=== PATIENT | male | born 1960 | race Caucasian/White ===

== ENCOUNTER 2016-09-28 12:23 | Emergency (ER) | payer SELFPAY ==
[~2016-09-28] VITALS: Ht 185.4 cm; Wt 87.0 kg
[~2016-09-28 12:23] MED LIST: BACT800T5 PO; CLIN150 PO; DILA8TAB4 PO; LISI-360 PO; METH10TA PO; XANA1TAB6 PO
[2016-09-28 12:37] VITALS: BP 152/109; PULSE 83; RESP 16; TEMP 98.3; O2SAT 100
[2016-09-28] MEDS ORDERED: HYDR8TAB PO (12:51)
[2016-09-28] MEDS ORDERED: METH10TA PO (12:51)
--- NOTE | 2016-09-28 13:13 | PD ---
HPI Chief Complaint: Injury Time Seen by Provider: 13:01 Travel History International Travel<30 days: No Contact w/Intl Traveler<30days: No Traveled to known affect area: No History of Present Illness HPI 55-year-old male presents to the emergency room for evaluation of left knee pain and swelling for the past week. Patient states one week ago he tripped and fell forward landing directly on his left knee. He denies any other injuries. Pain is localized to the posterior aspect of the knee. He has been unable to ambulate since then and has had to stay in bed. Patient states when he moves his knee he feels cracking on the inside. Pain is worsened with ambulation and any range of motion. He has been elevating it since the fall but not applying ice. He has been taking ibuprofen in addition to his pain medications. He takes Hydromorphone and methadone for previous ankle surgery in 2010. Denies history of left knee surgeries. Denies paresthesias. He denies being on blood thinners. PFSH Past Medical History Blood Disorders: No Anxiety: Yes Depression: Yes Cancer: No Cardiovascular Problems: Yes (HYPERTENSION) High Cholesterol: Yes Chemotherapy: No Chest Pain: No COPD: No Diabetes: No Diminished Hearing: No Endocrine: No Glaucoma: No Hiatal Hernia: No Musculoskeletal: Yes (CHRONIC PAIN) Psychiatric: Yes Respiratory: Yes Immunizations Current: No Myocardial Infarction: Yes (states he ws Dx with an NC at "[facility]") Radiation Therapy: No Renal Failure: No Seizures: No Sickle Cell Disease: No Sleep Apnea: Yes Thyroid Disease: No Influenza Vaccination: No PNEUMOCCOCAL Vaccine (Year): 2 ?: Not Past Surgical History Abdominal Surgery: Yes (MID ABD HERNIA REPAIR.) AICD: No Arteriovenous Shunt: No Insulin Pump: No Joint Replacement: No Pacemaker: No Other Surgery: Yes (RIGHT ANKLE) Social History Alcohol Use: No Tobacco Use: Yes (1ppd) Substance Use: Yes Allergies-Medications (Allergen,Severity, Reaction): Coded Allergies: No Known Allergies (Verified , 09/28/16) Reported Meds & Prescriptions Reported Meds & Active Scripts Active Reported Methadone (Methadone HCl) 10 Mg Tab 10 Mg PO TID Hydromorphone (Hydromorphone HCl) 8 Mg Tab 8 Mg PO TID PRN Review of Systems Except as stated in HPI: all other systems reviewed are Neg Physical Exam Narrative GENERAL: Well-nourished, well-developed male in no acute distress. Afebrile. SKIN: Focused skin assessment warm/dry. No erythema or ecchymosis. HEAD: Normocephalic. EYES: No scleral icterus. No injection or drainage. NECK: Supple, trachea midline. No JVD or lymphadenopathy. CARDIOVASCULAR: Regular rate and rhythm without murmurs, gallops, or rubs. RESPIRATORY: Breath sounds equal bilaterally. No accessory muscle use. EXTREMITY: Left knee extremely tender to palpation. Full extension but limited flexion secondary to pain and swelling. There is extreme edema and obvious effusion of the left knee. 2+ dorsalis pedis pulses. No obvious deformity. No pain with valgus or varus stress. No calf tenderness. Data Data Last Documented VS Vital Signs Date Time Temp Pulse Resp B/P Pulse Ox O2 Delivery O2 Flow Rate FiO2 09/28/16 12:37 98.3 83 16 152/109 100 Orders Knee, Complete (4vws) (09/28/16 ) Splint Or Brace Apply/Monitor (09/28/16 14:21) Crutches (09/28/16 14:28) MDM Medical Decision Making Medical Screen Exam Complete: Yes Emergency Medical Condition: Yes Medical Record Reviewed: Yes Differential Diagnosis Effusion versus fracture versus sprain versus contusion Narrative Course 55-year-old male presents to the emergency room for evaluation of left knee pain and swelling that has been present for one week. Patient tripped on curb and fell forward and landing directly on his left knee one week ago; denies any other injuries. Physical exam reveals extreme edema, obvious effusion, and tenderness to palpation of the left knee. Limited range of motion secondary to pain and swelling. No obvious deformity. Left lower extremity is neurovascularly intact with 2+ dorsalis pedis pulse. X-ray shows no evidence of acute fracture but suprapatellar joint effusion and moderate osteoarthritis with osteophyte formation. He was given copy of report. Patient placed in knee immobilizer and given crutches. He is ambulatory with crutches on discharge. He was told to follow up with a primary care physician for outpatient MRI to evaluate for sprain. He was told to return to the emergency room for worsening symptoms. He understands and agrees to this plan. Diagnosis Primary Impression: Effusion, left knee Referrals: Primary Care Physician Patient Instructions: General Instructions, Knee Sprain (ED) Additional Instructions: Rest and drink plenty of fluids. Use knee immobilizer until follow-up. Take ibuprofen with food as directed, as needed for pain and swelling. Elevate and apply ice to the affected area for 20 minutes at a time, as needed for pain and swelling. Follow-up with a primary care physician for outpatient MRI. Return to the emergency room for worsening symptoms. Med/Other Pt SpecificInfo: Prescription(s) given Disposition: 01 DISCHARGE HOME Condition: Stable Rama Kebede September 28, 2016 13:13
--- NOTE | 2016-09-28 14:06 | RADHPO ---
EXAM DATE/TIME: 09/28/2016 13:05 [facility] COMPARISON: No previous studies available for comparison. INDICATIONS : Left posterior knee pain & swelling post fall. MEDICAL HISTORY : Hypertension. Myocardial infarction. Hypercholesterolemia. Sleep apnea. SURGICAL HISTORY : Hernia repair. Right ankle. ENCOUNTER: Initial ACUITY: 1 week PAIN SCORE: 10/10 LOCATION: Left posterior knee FINDINGS: There is moderate osteoarthritis with joint space narrowing and marginal osteophyte formation in the lateral tibiofemoral compartment. There is no evidence of acute fracture. Bony mineralization is nor mal. A suprapatellar joint effusion is present. There is spur formation off the superior aspect of th e patella. CONCLUSION: 1. There is no evidence of acute fracture. Joint effusion Fabio Carrera MD on September 28, 2016 at 14:02 Board Certified Radiologist. This report was verified electronically.
== END 2016-09-28 14:59 | disposition home or self-care (01) ==
LOC: PHEFT 12:23
DX: M25.462 Effusion, left knee (principal); I10 Essential (primary) hypertension; F17.210 Nicotine dependence, cigarettes, uncomplicated
CPT/HCPCS: 73564; 99283; E0113; L1830

== ENCOUNTER 2016-10-31 18:37 | Emergency (ER) | payer SELFPAY ==
[~2016-10-31] VITALS: Ht 177.8 cm; Wt 80.0 kg
[~2016-10-31 18:37] MED LIST changes: -BACT800T5 PO; -CLIN150 PO; -DILA8TAB4 PO; +HYDR8TAB PO; -LISI-360 PO; -XANA1TAB6 PO
[2016-10-31 18:38] VITALS: BP 133/78; PULSE 84; RESP 16; TEMP 97.8; O2SAT 98
--- NOTE | 2016-10-31 19:27 | PD ---
HPI Chief Complaint: Injury Time Seen by Provider: 19:22 Travel History International Travel<30 days: No Contact w/Intl Traveler<30days: No Traveled to known affect area: No History of Present Illness HPI Patient is a 55-year-old male presents to emergency department for evaluation of left knee and lower leg pain and swelling. Patient fell approximately 5 weeks ago onto his left knee, he was seen and evaluated shortly thereafter and diagnosed with a knee effusion, he was given crutches and a knee immobilizer. Patient reports that he is having increased pain and swelling for the last several days. He reports pain in his mid calf that is an 8 out of 10. He describes his pain as aching and throbbing. He denies any history of a blood clot but he has been sedentary and is a smoker. Patient is not on any blood thinners. He has not followed up with primary care as previously advised. PFSH Past Medical History Anxiety: Yes Depression: Yes High Cholesterol: Yes Hypertension: Yes Musculoskeletal: Yes (CHRONIC PAIN) Respiratory: Yes Myocardial Infarction: Yes Sleep Apnea: Yes PNEUMOCCOCAL Vaccine (Year): 2 Past Surgical History Abdominal Surgery: Yes (MID ABD HERNIA REPAIR.) Other Surgery: Yes (RIGHT ANKLE) Social History Alcohol Use: No Tobacco Use: Yes (1ppd) Substance Use: Yes (IV Dilaudid) Allergies-Medications (Allergen,Severity, Reaction): Coded Allergies: No Known Allergies (Verified , 10/31/16) Reported Meds & Prescriptions Reported Meds & Active Scripts Active Reported Methadone (Methadone HCl) 10 Mg Tab 10 Mg PO TID Hydromorphone (Hydromorphone HCl) 8 Mg Tab 8 Mg PO TID PRN Review of Systems Except as stated in HPI: all other systems reviewed are Neg Musculoskeletal: Positive: Myalgias, Arthralgias, Limited ROM, Edema, Pain Skin: Positive Change in Pigmentation Physical Exam Narrative GENERAL: Well-nourished, well-developed patient. SKIN: Focused skin assessment warm/dry. HEAD: Normocephalic. EYES: No scleral icterus. No injection or drainage. NECK: Supple, trachea midline. No JVD or lymphadenopathy. CARDIOVASCULAR: Regular rate and rhythm without murmurs, gallops, or rubs. RESPIRATORY: Breath sounds equal bilaterally. No accessory muscle use. GASTROINTESTINAL: Abdomen soft, non-tender, nondistended. MUSCULOSKELETAL: No cyanosis, significant edema to the left lower extremity, 2+ . Erythema and edema to the left foot. 2+ Positive dorsalis pedis pulse. Positive Sumi sign on the left. BACK: Nontender without obvious deformity. No CVA tenderness. Data Data Last Documented VS Vital Signs Date Time Temp Pulse Resp B/P Pulse Ox O2 Delivery O2 Flow Rate FiO2 10/31/16 19:12 84 16 98 Room Air 10/31/16 18:38 97.8 133/78 Orders Us Leg Venous Doppler (10/31/16 ) Complete Blood Count With Diff (10/31/16 19:21) Comprehensive Metabolic Panel (10/31/16 19:21) Act Partial Throm Time (Ptt) (10/31/16 19:21) Prothrombin Time / Inr (Pt) (10/31/16 19:21) Cta Runoff W Iv Contrast W 3d (10/31/16 ) Clindamycin Inj (Cleocin Inj) (10/31/16 21:45) Iohexol 350 Inj (Omnipaque 350 Inj) (10/31/16 23:09) Ketorolac Inj (Toradol Inj) (11/01/16 00:15) Labs Laboratory Tests Test 10/31/16 19:35 White Blood Count 8.0 TH/MM3 Red Blood Count 3.71 MIL/MM3 Hemoglobin 10.3 GM/DL Hematocrit 30.3 % Mean Corpuscular Volume 81.7 FL Mean Corpuscular Hemoglobin 27.7 PG Mean Corpuscular Hemoglobin 33.9 % Concent Red Cell Distribution Width 14.4 % Platelet Count 329 TH/MM3 Mean Platelet Volume 7.9 FL Neutrophils (%) (Auto) 80.2 % Lymphocytes (%) (Auto) 8.1 % Monocytes (%) (Auto) 9.9 % Eosinophils (%) (Auto) 1.1 % Basophils (%) (Auto) 0.7 % Neutrophils # (Auto) 6.5 TH/MM3 Lymphocytes # (Auto) 0.7 TH/MM3 Monocytes # (Auto) 0.8 TH/MM3 Eosinophils # (Auto) 0.1 TH/MM3 Basophils # (Auto) 0.1 TH/MM3 CBC Comment DIFF FINAL Differential Comment Prothrombin Time 11.8 SEC Prothromb Time International 1.1 RATIO Ratio Activated Partial 30.6 SEC Thromboplast Time Sodium Level 134 MEQ/L Potassium Level 3.6 MEQ/L Chloride Level 100 MEQ/L Carbon Dioxide Level 23.8 MEQ/L Anion Gap 10 MEQ/L Blood Urea Nitrogen 16 MG/DL Creatinine 0.77 MG/DL Estimat Glomerular Filtration 105 ML/MIN Rate Random Glucose 103 MG/DL Calcium Level 8.3 MG/DL Total Bilirubin 0.3 MG/DL Aspartate Amino Transf 29 U/L (AST/SGOT) Alanine Aminotransferase 26 U/L (ALT/SGPT) Alkaline Phosphatase 67 U/L Total Protein 7.3 GM/DL Albumin 2.6 GM/DL MDM Medical Decision Making Medical Screen Exam Complete: Yes Emergency Medical Condition: Yes Medical Record Reviewed: Yes Interpretation(s) Last Impressions Lower Extremity Ultrasound 10/31/16 0000 Signed Impressions: Service Date/Time: Monday, October 31, 2016 20:13 - CONCLUSION: 1. No DVT is identified in the left lower extremity. 2. Complex structures in the popliteal fossa and medial calf may represent a complex Gregory's cyst and fluid tracking inferiorly from the Gregory's cyst into the calf. Yvon Alcantara MD Aorta w/Runoff CTA 10/31/16 0000 Signed Impressions: Service Date/Time: Monday, October 31, 2016 22:45 - CONCLUSION: 1. No thrombosis , stenosis or other acute arterial abnormality demonstrated. Minimal patchy atherosclerotic plaque seen in the aorta. 2. Bilateral knee osteoarthritis, left worse than right. On the left, there is a 14 mm osteochondral body anterior to the notch and an effusion that is leaking into the popliteus muscle belly and a popliteal cyst. The left medial gastrocnemius fluid is less specific but probably leaking joint/Gregory's cyst fluid as well. 3. A benign-appearing cyst is incidentally noted of the left kidney. Yvon Shultz MD Vital Signs Date Time Temp Pulse Resp B/P Pulse Ox O2 Delivery O2 Flow Rate FiO2 10/31/16 19:12 84 16 98 Room Air 10/31/16 18:38 97.8 84 16 133/78 98 Differential Diagnosis DVT versus cellulitis versus dependent edema versus effusion versus other Narrative Course Patient is a 55-year-old male presenting for evaluation of left lower leg pain and swelling that initially started out as a left knee effusion approximately 5 weeks ago. Initial x-rays done on September 28, 2016 were negative for acute fracture but did show osteoarthritis as well a knee effusion. Patient has been using a knee immobilizer as well as crutches and continues to be unable to bear weight. Patient is currently neurovascularly intact however he does have significant edema and erythema to the left lower extremity. Ultrasound ordered to rule out DVT. Ultrasound was negative for DVT, does show fluid collections, possible Gregory cyst. I discussed with Dr. Bravo who evaluated patient. At this time a CTA of the lower extremities with runoff is ordered to rule out any neurovascular compromise. Patient be given dose of IV clindamycin now. While Dr. Bravo and I were evaluating patient together there were obvious track mcgrath to patient 's left posterior forearm that were not noticed before. Patient does admit to injecting Dilaudid. CTA with runoff of bilateral lower extremity shows No thrombosis, stenosis or other acute arterial abnormality demonstrated. Minimal patchy atherosclerotic plaque seen in the aorta. 2. Bilateral knee osteoarthritis, left worse than right. On the left, there is a 14 mm osteochondral body anterior to the notch and an effusion that is leaking into the popliteus muscle belly and a popliteal cyst. The left medial gastrocnemius fluid is less specific but probably leaking joint/Gregory's cyst fluid as well. 3. A benign-appearing cyst is incidentally noted of the left kidney. Per the radiologist's report. Patient was advised to follow-up with orthopedic surgeon as he was advised well over a month ago, he is encouraged to alternate heat and ice to the area, continue range of motion exercises, elevate extremity. He can continue to take his home pain medication. He is encouraged to return to emergency department for any new or worsening symptoms. Patient verbalized understanding of instructions. Patient is stable for discharge. Patient was strongly advised to avoid injecting his Dilaudid into his veins and take it orally as prescribed. 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 Do not inject into veins Return to emergency department for any new or worsening symptoms Med/Other Pt SpecificInfo: Prescription(s) given Scripts Clindamycin 150 Mg [id number] Mg PO Q8HR 7 Days Ref 0 Prov:Elva Bull 11/01/16 Disposition: 01 DISCHARGE HOME Condition: Stable Elva Bull Oct 31, 2016 19:27
[2016-10-31 19:57] LABS: AUTOMATED NEUTROPHIL # 6.5 TH/MM3 (1.8-7.7); BASOPHIL # 0.1 TH/MM3 (0-0.2); BASOPHIL % 0.7 % (0.0-2.0); EOSINOPHIL # 0.1 TH/MM3 (0-0.4); EOSINOPHIL % 1.1 % (0.0-4.0); HEMATOCRIT 30.3 % (39.0-51.0); HEMO FLAGS DIFF FINAL; LYMPH % 8.1 % (9.0-44.0); LYMPHOCYTE # 0.7 TH/MM3 (1.0-4.8); MEAN CELL VOLUME 81.7 FL (80.0-100.0); MEAN CORPUSCULAR HEMOGLOBIN 27.7 PG (27.0-34.0); MEAN CORPUSCULAR HGB CONC 33.9 % (32.0-36.0); MONO % 9.9 % (0.0-8.0); NEUT % 80.2 % (16.0-70.0); PLATELET COUNT 329 TH/MM3 (150-450); RED BLOOD COUNT 3.71 MIL/MM3 (4.50-5.90); RED CELL DISTRIBUTION WIDTH 14.4 % (11.6-17.2)
[2016-10-31 20:10] LABS: ANION GAP 10 MEQ/L (5-15); AST (GOT) 29 U/L (15-37); BICARBONATE 23.8 MEQ/L (21.0-32.0); BLOOD UREA NITROGEN 16 MG/DL (7-18); CHLORIDE 100 MEQ/L (98-107); GLOMERULAR FILTRATION RATE 105 ML/MIN (>89); POTASSIUM 3.6 MEQ/L (3.5-5.1); SODIUM (NA) 134 MEQ/L (136-145)
[2016-10-31 20:11] LABS: ALT (GPT) 26 U/L (12-78)
[2016-10-31 20:13] LABS: ALKALINE PHOSPHATASE 67 U/L (45-117); TOTAL BILIRUBIN ADULT 0.3 MG/DL (0.2-1.0)
[2016-10-31 20:14] LABS: APTT (PATIENT) 30.6 SEC (24.3-30.1); INTERNATIONAL NORMALIZED RATIO 1.1 RATIO; PROTHROMBIN TIME - PATIENT 11.8 SEC (9.8-11.6)
--- NOTE | 2016-10-31 21:44 | RADRPT ---
EXAM DATE/TIME: 10/31/2016 20:13 [facility] COMPARISON: No previous studies available for comparison. INDICATIONS : Left leg swelling and pain. MEDICAL HISTORY : Hypercholesterolemia. Hypertension. Myocardial infarction. Sleep apea. Depression. Anxiety. SURGICAL HISTORY : Right ankle surgery. Hernia repair. ENCOUNTER: Initial ACUITY: 1 week PAIN SCORE: 9/10 LOCATION: Left leg. TECHNIQUE: Venous ultrasound of the leg was performed from the inguinal ligament to the proximal calf. Real-lonnie e, color Doppler and spectral tracing, compression and augmentation techniques were used. FINDINGS: There is normal compressibility of the deep venous system from the inguinal region to the proximal ca lf. No echogenic clot is seen in the lumen of the common femoral, femoral, popliteal, and posterior tibial veins. There is a normal response of the venous system to proximal and distal augmentation an d respiration. There is a hypoechoic avascular structure in the popliteal fossa measuring 5.0 x 1.6 x 3.3 cm. Partia lly anechoic and hypoechoic structure is also present on the left medial calf region and measures 11. 1 x 0.8 x 6.8 cm. CONCLUSION: 1. No DVT is identified in the left lower extremity. 2. Complex structures in the popliteal fossa and medial calf may represent a complex Gregory's cyst and fluid tracking inferiorly from the Gregory's cyst into the calf. Yvon Alcantara MD on October 31, 2016 at 21:01 Board Certified Radiologist. This report was verified electronically.
[2016-10-31] MEDS ORDERED: CLINDAMYCIN INJ 900 MG in SODIUM CHLORIDE 0.9% INJ 100 ML IV ONE (21:45)
[2016-10-31] MEDS ORDERED: IOHEXOL 350 MG/ML 10 ML VIAL (for RAD DIAG) IV ONE (23:09)
[2016-11-01] MEDS ORDERED: KETOROLAC TROMETHAMINE 30 MG/ML (IVP) VIAL IV PUSH ONE (00:15)
--- NOTE | 2016-11-01 00:33 | RADRPT ---
EXAM DATE/TIME: 10/31/2016 22:45 [facility] COMPARISON: US LEG LEFT VENOUS DOPPLER, October 31, 2016, 20:13. KNEE LEFT COMPLETE (4VWS), September 28, 2016, 13:05. INDICATIONS : Left leg swelling. Left knee injury 5 weeks ago. IV CONTRAST: 100 cc Omnipaque 350 (iohexol) IV RADIATION DOSE: 10.51 CTDIvol (mGy) MEDICAL HISTORY : Hypertension. IV drug user SURGICAL HISTORY : Hernia repair ENCOUNTER: Initial ACUITY: 1 month PAIN SCALE: 10/10 LOCATION: Left leg TECHNIQUE: Volumetric scanning was performed using a multi-row detector CT scanner. The data was post processed with a variety of visualization algorithms including full volume maximum intensity projection, multi -planar sliding thin slab reformation, curved planar reformation, and surface rendering techniques. Using automated exposure control and adjustment of the mA and/or kV according to patient size, radiat ion dose was kept as low as reasonably achievable to obtain optimal diagnostic quality images. FINDINGS: ABDOMINAL AORTA: The lumen is smooth without significant narrowing or aneurysmal dilation. Mild patchy atheroscleroti c plaque seen of the abdominal aorta. The proximal celiac and superior mesenteric arteries are patent and normal in diameter. There are solitary renal arteries bilaterally without gross abnormality. BIFURCATION: Normal. RIGHT PELVIS: The right common iliac, internal iliac, and external iliac vessels are patent without luminal irregul arity. LEFT PELVIS: The left common iliac, internal iliac, and external iliac vessels are patent and without luminal irre gularity. RIGHT THIGH: The superficial femoral and profunda vessels are patent without luminal irregularity. LEFT THIGH: The superficial femoral and profunda vessels are patent without luminal irregularity. RIGHT KNEE: The distal femoral and popliteal arteries are patent without luminal irregularity. There is moderate tricompartment osteoarthritis. LEFT KNEE: The distal femoral and popliteal arteries are patent without luminal irregularity. There is tricompar tment osteoarthritis, moderate at the medial compartment and severe at the lateral and patellofemoral compartments. A 14 mm osteochondral body is seen anterior to the notch. A large left knee joint effu eddie is present, some decompressing into the popliteus muscle belly and some also decompressing into the semimembranosus/gastrocnemius bursa. Elongated fluid collection also seen within the medial gastr ocnemius muscle. RIGHT LEG: The trifurcation is intact. LEFT LEG: The trifurcation is intact. 3.2 cm cyst incidentally seen of the left kidney. CONCLUSION: 1. No thrombosis, stenosis or other acute arterial abnormality demonstrated. Minimal patchy atheroscl erotic plaque seen in the aorta. 2. Bilateral knee osteoarthritis, left worse than right. On the left, there is a 14 mm osteochondral body anterior to the notch and an effusion that is leaking into the popliteus muscle belly and a popl iteal cyst. The left medial gastrocnemius fluid is less specific but probably leaking joint/Gregory's c yst fluid as well. 3. A benign-appearing cyst is incidentally noted of the left kidney. Yvon Shultz MD on November 01, 2016 at 0:23 Board Certified Radiologist. This report was verified electronically.
[2016-11-01] MEDS ORDERED: CLIN1CAP5 PO (01:11)
== END 2016-11-01 01:44 | disposition home or self-care (01) ==
LOC: NEPD 18:37
DX: M71.22 Synovial cyst of popliteal space [Baker], left knee (principal); L03.116 Cellulitis of left lower limb; M25.462 Effusion, left knee; I10 Essential (primary) hypertension; F41.8 Other specified anxiety disorders; I21.3 ST elevation (STEMI) myocardial infarction of unspecified site; F17.210 Nicotine dependence, cigarettes, uncomplicated; F19.10 Other psychoactive substance abuse, uncomplicated; M17.12 Unilateral primary osteoarthritis, left knee
CPT/HCPCS: 75635; 80053; 85025; 85610; 85730; 93971; 96365; 96375; 99285; J1885; Q9967

== ENCOUNTER 2017-10-11 23:46 | Emergency (ER) | payer MEDICAID, OTHER ==
[~2017-10-11] VITALS: Ht 185.4 cm; Wt 86.0 kg
[~2017-10-11 23:46] MED LIST changes: +CLON.1 PO; +ENAL5TAB PO; +FLUT50SP NASAL; +HYDR25TA5 PO; -HYDR8TAB PO; +LORATADINE PO; -METH10TA PO; +PSEUDOEPHEDRINE PO; +SERO25TA PO
[2017-10-11 23:49] VITALS: BP 197/105; PULSE 92; RESP 20; TEMP 97.4; O2SAT 99
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
[2017-10-12] MEDS ORDERED: ASPIRIN 81 MG CHEW TAB PO ONE
[2017-10-12] MEDS ORDERED: SODIUM CHLORIDE 0.9% FLUSH 10 ML FLUSH IVF PRN
[2017-10-12 00:01] VITALS: BP 197/105; PULSE 96; O2SAT 99
[2017-10-12 00:19] LABS: AUTOMATED NEUTROPHIL # 8.1 TH/MM3 (1.8-7.7); BASOPHIL # 0.1 TH/MM3 (0-0.2); BASOPHIL % 0.6 % (0.0-2.0); EOSINOPHIL # 0.1 TH/MM3 (0-0.4); EOSINOPHIL % 0.7 % (0.0-4.0); HEMATOCRIT 40.2 % (39.0-51.0); HEMOGLOBIN 13.6 GM/DL (13.0-17.0); LYMPH % 9.4 % (9.0-44.0); LYMPHOCYTE # 0.9 TH/MM3 (1.0-4.8); MEAN CELL VOLUME 87.7 FL (80.0-100.0); MEAN CORPUSCULAR HEMOGLOBIN 29.6 PG (27.0-34.0); MEAN CORPUSCULAR HGB CONC 33.7 % (32.0-36.0); MEAN PLATELET VOLUME 8.4 FL (7.0-11.0); MONO % 5.2 % (0.0-8.0); MONOCYTE # 0.5 TH/MM3 (0-0.9); NEUT % 84.1 % (16.0-70.0); PLATELET COUNT 244 TH/MM3 (150-450); RED BLOOD COUNT 4.59 MIL/MM3 (4.50-5.90); RED CELL DISTRIBUTION WIDTH 14.7 % (11.6-17.2); WHITE BLOOD COUNT 9.6 TH/MM3 (4.0-11.0)
[2017-10-12 00:29] LABS: INTERNATIONAL NORMALIZED RATIO 1.1 RATIO; PROTHROMBIN TIME - PATIENT 11.5 SEC (9.8-11.6)
--- NOTE | 2017-10-12 00:29 | RADRPT ---
EXAM DATE: 10/12/2017 12:17 AM EDT AGE/SEX: 56 years / Male INDICATIONS: Short of breath. CLINICAL DATA: This is the patient's initial encounter. Patient reports that signs and symptoms have been present for 1 day and indicates a pain score of 0/10. MEDICAL/SURGICAL HISTORY: . Hypertension. Arthritis. IV drug user. None. COMPARISON: [facility] [place], CHEST PA & LAT, 09/10/2010. . FINDINGS: The lungs are clear without infiltrate, nodule, or mass. There is no appreciable pleural effusion for technique. Heart and mediastinum are unremarkable. CONCLUSION: No acute cardiopulmonary disease. Electronically signed by: Karuna Alcantara MD 10/12/2017 12:27 AM EDT
[2017-10-12 00:50] LABS: ALBUMIN 3.3 GM/DL (3.4-5.0); ALT (GPT) 20 U/L (12-78); AST (GOT) 21 U/L (15-37); BICARBONATE 21.3 MEQ/L (21.0-32.0); BLOOD UREA NITROGEN 12 MG/DL (7-18); CALCIUM 8.2 MG/DL (8.5-10.1); CHLORIDE 104 MEQ/L (98-107); CREATININE 0.93 MG/DL (0.60-1.30); GLOMERULAR FILTRATION RATE 84 ML/MIN (>89); GLUCOSE,RANDOM 117 MG/DL (74-106); SODIUM (NA) 139 MEQ/L (136-145)
[2017-10-12 00:54] LABS: ALKALINE PHOSPHATASE 122 U/L (45-117); TOTAL BILIRUBIN ADULT 0.3 MG/DL (0.2-1.0); TOTAL PROTEIN 7.6 GM/DL (6.4-8.2); TROPONIN I LESS THAN 0.02 NG/ML (0.02-0.05)
[2017-10-12 01:07] LABS: ACETAMINOPHEN LESS THAN 2.0 MCG/ML (10.0-30.0)
[2017-10-12] MEDS ORDERED: cloNIDine HCL 0.1 MG TAB PO ONE ×2 (01:15)
[2017-10-12 01:35] VITALS: BP 180/90; PULSE 76
[2017-10-12 07:24] VITALS: PULSE 67; RESP 15
[2017-10-12 09:38] VITALS: BP 180/97; PULSE 83; RESP 16; O2SAT 97
--- NOTE | 2017-10-12 11:00 | PD ---
Data Data Last Documented VS Vital Signs Date Time Temp Pulse Resp B/P (MAP) Pulse Ox O2 Delivery O2 Flow Rate FiO2 10/12/17 09:38 83 16 180/97 (124) 97 Room Air 10/11/17 23:49 97.4 Orders Orders Electrocardiogram (10/11/17 23:56) Ckmb (Isoenzyme) Profile (10/11/17 23:56) Complete Blood Count With Diff (10/11/17 23:56) Comprehensive Metabolic Panel (10/11/17 23:56) Prothrombin Time / Inr (Pt) (10/11/17 23:56) Act Partial Throm Time (Ptt) (10/11/17 23:56) Troponin I (10/11/17 23:56) Chest, Single Ap (10/11/17 23:56) Ecg Monitoring (10/11/17 23:56) Iv Access Insert/Monitor (10/11/17 23:56) Oximetry (10/11/17 23:56) Aspirin Chew (Aspirin Chew) (10/12/17 00:00) Sodium Chloride 0.9% Flush (Ns Flush) (10/12/17 00:00) Clonidine (Catapres) (10/12/17 00:00) Drug Screen, Random Urine (10/11/17 23:56) Psych Screen (10/11/17 23:56) Alcohol (Ethanol) (10/11/17 23:56) Salicylates (Aspirin) (10/11/17 23:56) Tylenol (Acetaminophen) (10/11/17 23:56) Troponin I (10/12/17 03:00) Clonidine (Catapres) (10/12/17 01:15) Diet Regular Basic (10/12/17 Breakfast) Labs Laboratory Tests Test 10/12/17 00:03 10/12/17 00:10 10/12/17 03:05 White Blood Count 9.6 TH/MM3 Red Blood Count 4.59 MIL/MM3 Hemoglobin 13.6 GM/DL Hematocrit 40.2 % Mean Corpuscular Volume 87.7 FL Mean Corpuscular Hemoglobin 29.6 PG Mean Corpuscular Hemoglobin Concent 33.7 % Red Cell Distribution Width 14.7 % Platelet Count 244 TH/MM3 Mean Platelet Volume 8.4 FL Neutrophils (%) (Auto) 84.1 % Lymphocytes (%) (Auto) 9.4 % Monocytes (%) (Auto) 5.2 % Eosinophils (%) (Auto) 0.7 % Basophils (%) (Auto) 0.6 % Neutrophils # (Auto) 8.1 TH/MM3 Lymphocytes # (Auto) 0.9 TH/MM3 Monocytes # (Auto) 0.5 TH/MM3 Eosinophils # (Auto) 0.1 TH/MM3 Basophils # (Auto) 0.1 TH/MM3 CBC Comment DIFF FINAL Differential Comment Prothrombin Time 11.5 SEC Prothromb Time International Ratio 1.1 RATIO Activated Partial Thromboplast Time 25.0 SEC Blood Urea Nitrogen 12 MG/DL Creatinine 0.93 MG/DL Random Glucose 117 MG/DL Total Protein 7.6 GM/DL Albumin 3.3 GM/DL Calcium Level 8.2 MG/DL Alkaline Phosphatase 122 U/L Aspartate Amino Transf (AST/SGOT) 21 U/L Alanine Aminotransferase (ALT/SGPT) 20 U/L Total Bilirubin 0.3 MG/DL Sodium Level 139 MEQ/L Potassium Level 3.9 MEQ/L Chloride Level 104 MEQ/L Carbon Dioxide Level 21.3 MEQ/L Anion Gap 14 MEQ/L Estimat Glomerular Filtration Rate 84 ML/MIN Total Creatine Kinase 83 U/L Troponin I LESS THAN 0.02 NG/ML LESS THAN 0.02 NG/ML Salicylates Level LESS THAN 1.7 MG/DL Acetaminophen Level LESS THAN 2.0 MCG/ML Ethyl Alcohol Level LESS THAN 3 MG/DL Urine Opiates Screen NEG Urine Barbiturates Screen NEG Urine Amphetamines Screen NEG Urine Benzodiazepines Screen NEG Urine Cocaine Screen POS Urine Cannabinoids Screen NEG MDM Supervised Visit with MAAMDOU: No Narrative Course This patient has been evaluated by psychiatry. They have been cleared from a psychiatric standpoint. Patient was medically cleared by Dr. Evangelista. He did have chest pain and reports but has been using cocaine. He had 2 sets of cardiac enzymes that were normal. Vital signs are normal. Stable for outpatient follow-up Diagnosis Primary Impression: Atypical chest pain Additional Impression: Medical clearance for psychiatric admission Patient Instructions: Medical Clearance for Psychiatric Care (ED), Noncardiac Chest Pain (ED) Departure Forms: Tests/Procedures Additional Instruction: Follow up with your primary care provider and a psychiatrist as needed. Return for any change or worsening in condition. Disposition: DISCHARGE HOME Condition: Stable Rahat Rodriguez MD October 12, 2017 11:00
--- NOTE | 2017-10-12 13:46 | PD.PSY.CON ---
Provisional Diagnosis Admission Date [place] I. Polysubstance dependence including cocaine and heroin, substance-induced mood disorder, history of depression, r/o conscious simulation with secondary gain [place] II. Antisocial personality disorder [place] III. Hypertension, chronic pain History of Present Illness Service Psychiatry Consult Requested By ER Reason for Consult Suicidal ideation Primary Care Physician No Primary Care Physician HPI The patient is a 56-year-old man, domiciled in [facility] alone, , but , unemployed, supported by [facility], well known by the psychiatric service, he has history of depression, bipolar disorder, polysubstance dependence including cocaine and heroine, antisocial personality disorder, previous psychiatric hospitalizations, last hospitalization here in [place] in June 2016, history of drug seeking and manipulative behavior, medical history hypertension, chronic pain, who brought in by ambulance for evaluation of generalized malaise, chest pain and stating that he is a danger to himself. Patient also told EVAC that he was having substernal chest pain which resolved on route to the emergency department. He described the pain as burning sensation over the center of his chest, nonradiating. He has no known history of cardiac disease. He states that he is a danger to himself because he uses heroin. He last used yesterday and believes he may be going through withdrawals. On psychiatric evaluation the patient reports that he has been using cocaine and heroine every day. He says that he needs detox or rehab. At the same time, the patient requests medication for pain for his knee and his chest. At this moment the patient denies suicidal and homicidal ideation, he denies visual and auditory hallucinations. He is logical, coherent and relevant. Goal-directed. Oriented 3. No attention deficit, no fluctuation of consciousness present. He reports daily use of cocaine and heroine. Review of Systems Constitutional: DENIES: Diaphoretic episodes, Fatigue, Fever, Weight gain, Weight loss, Chills, Dizziness, Change in appetite, Night Sweats Endocrine: DENIES: Heat/cold intolerance, Polydipsia, Polyuria, Polyphagia Eyes: DENIES: Blurred vision, Diplopia, Eye inflammation, Eye pain, Vision loss , Photosensitivity, Double Vision Ears, nose, mouth, throat: DENIES: Tinnitus, Hearing loss, Vertigo, Nasal discharge, Oral lesions, Throat pain, Hoarseness, Ear Pain, Running Nose, Epistaxis, Sinus Pain, Toothache, Odynophagia Respiratory: DENIES: Apneas, Cough, Snoring, Wheezing, Hemoptysis, Sputum production, Shortness of breath Cardiovascular: DENIES: Chest pain, Palpitations, Syncope, Dyspnea on Exertion , PND, Lower Extremity Edema, Orthopnea, Claudication Gastrointestinal: DENIES: Abdominal pain, Black stools, Bloody stools, Constipation, Diarrhea, Nausea, Vomiting, Difficulty Swallowing, Anorexia Genitourinary: DENIES: Sexual dysfunction, Urinary frequency, Urinary incontinence, Urgency, Hematuria, Dysuria, Nocturia, Penile Discharge, Testicular Pain, Testicular Swelling Musculoskeletal: DENIES: Joint pain, Muscle aches, Stiffness, Joint Swelling, Back pain, Neck pain Integumentary: DENIES: Abnormal pigmentation, Nail changes, Pruritus, Rash Hematologic/lymphatic: DENIES: Bruising, Lymphadenopathy Immunologic/allergic: DENIES: Eczema, Urticaria Neurologic: DENIES: Abnormal gait, Headache, Localized weakness, Paresthesias, Seizures, Speech Problems, Tremor, Poor Balance Psychiatric: DENIES: Anxiety, Confusion, Mood changes, Depression, Hallucinations, Agitation, Suicidal Ideation, Homicidal Ideation, Delusions Past Family Social History Coded Allergies: No Known Allergies (Verified Allergy, Unknown, 06/23/17) Active Scripts Clonidine (Catapres) 0.1 Mg Tab, 0.1 MG PO Q12HR for Blood Pressure Management for 15 Days, TAB 1 Refill Prov:Fabio Donohue MD 06/29/17 [Lorata-Pseud 5-120 Mg Sr.12 Hr] 1 TAB TABCR No Conflict Check, 1 TAB PO Q12HR for HEALTH for 15 Days, 1 Refill Prov:Fabio Donohue MD 06/29/17 Fluticasone Nasal [place] (Fluticasone Nasal [place]) 50 Mcg/Act Naspr, 1 SPRAY NASAL BID for HEALTH for 15 Days, BOTTLE 1 Refill 50 mcg/spray Prov:Fabio Donohue MD 06/29/17 Hydrochlorothiazide (Hydrochlorothiazide) 25 Mg Tab, 25 MG PO DAILY for HEALTH for 15 Days, #15 TAB 1 Refill Prov:Fabio Donohue MD 06/29/17 Quetiapine (Seroquel) 25 Mg Tab, 50 MG PO BID for MENTAL HEALTH for 15 Days, # 60 TAB 1 Refill Prov:Fabio Donohue MD 06/29/17 Reported Medications Enalapril (Enalapril) 5 Mg Tab, 5 MG PO DAILY, #30 TAB 0 Refills 06/23/17 Family Psych History No family psychiatric history Social History Patient was born and raised in [place], he lives alone in [facility], he is but , unemployed, supported by [facility], his highest level of education is 10th grade Patient's Strengths (min. 2) Verbal communication Physical Exam No tremors, no EPS, no withdrawal symptoms present Vital Signs Vital Signs Date Time Temp Pulse Resp B/P (MAP) Pulse Ox O2 Delivery O2 Flow Rate FiO2 10/12/17 11:09 (124) 10/12/17 09:38 83 16 97 Room Air 10/11/17 23:49 97.4 I/O 10/12/17 10/12/17 10/13/17 08:00 16:00 00:00 Intake Total 360 ml Output Total 1000 ml Balance -640 ml Lab Results Test 10/12/17 00:03 10/12/17 00:10 10/12/17 03:05 White Blood Count 9.6 TH/MM3 Red Blood Count 4.59 MIL/MM3 Hemoglobin 13.6 GM/DL Hematocrit 40.2 % Mean Corpuscular Volume 87.7 FL Mean Corpuscular Hemoglobin 29.6 PG Mean Corpuscular Hemoglobin Concent 33.7 % Red Cell Distribution Width 14.7 % Platelet Count 244 TH/MM3 Mean Platelet Volume 8.4 FL Neutrophils (%) (Auto) 84.1 % Lymphocytes (%) (Auto) 9.4 % Monocytes (%) (Auto) 5.2 % Eosinophils (%) (Auto) 0.7 % Basophils (%) (Auto) 0.6 % Neutrophils # (Auto) 8.1 TH/MM3 Lymphocytes # (Auto) 0.9 TH/MM3 Monocytes # (Auto) 0.5 TH/MM3 Eosinophils # (Auto) 0.1 TH/MM3 Basophils # (Auto) 0.1 TH/MM3 CBC Comment DIFF FINAL Differential Comment Prothrombin Time 11.5 SEC Prothromb Time International Ratio 1.1 RATIO Activated Partial Thromboplast Time 25.0 SEC Blood Urea Nitrogen 12 MG/DL Creatinine 0.93 MG/DL Random Glucose 117 MG/DL Total Protein 7.6 GM/DL Albumin 3.3 GM/DL Calcium Level 8.2 MG/DL Alkaline Phosphatase 122 U/L Aspartate Amino Transf (AST/SGOT) 21 U/L Alanine Aminotransferase (ALT/SGPT) 20 U/L Total Bilirubin 0.3 MG/DL Sodium Level 139 MEQ/L Potassium Level 3.9 MEQ/L Chloride Level 104 MEQ/L Carbon Dioxide Level 21.3 MEQ/L Anion Gap 14 MEQ/L Estimat Glomerular Filtration Rate 84 ML/MIN Total Creatine Kinase 83 U/L Troponin I LESS THAN 0.02 NG/ML LESS THAN 0.02 NG/ML Salicylates Level LESS THAN 1.7 MG/DL Acetaminophen Level LESS THAN 2.0 MCG/ML Ethyl Alcohol Level LESS THAN 3 MG/DL Urine Opiates Screen NEG Urine Barbiturates Screen NEG Urine Amphetamines Screen NEG Urine Benzodiazepines Screen NEG Urine Cocaine Screen POS Urine Cannabinoids Screen NEG Mental Status Examination Appearance: Appropriate Consciousness: Alert Orientation: x4 Motor Activity: Normal gait Speech: Unremarkable Language: Adequate Fund of Knowledge: Adequate Attention and Concentration: Adequate Memory: Unremarkable Mood: Appropriate Affect: Appropriate Thought Process & Associations: Intact Thought Content: Appropriate Hallucination Type: None Delusion Type: None Suicidal Ideation: No Suicidal Plan: No Suicidal Intention: No Homicidal Ideation: No Homicidal Plan: No Homicidal Intention: No Insight: Adequate Judgment: Adequate Assessment & Plan Problem List: (1) Polysubstance dependence ICD Codes: F19.20 - Other psychoactive substance dependence, uncomplicated Assessment & Plan: On psychiatric evaluation the patient reports chest and knee pain. He admits that he has been using cocaine and heroin every day for the last weeks. He reports depression and anxiety secondary to withdrawal and pain. He denies suicidal and homicidal ideation, he denies visual and auditory hallucinations at the moment. The patient seems to be interested in detox/ rehab. I offered him to be transferred to [facility], but he declined. During my evaluation the patient continues to be focused in pain medication. The patient has history of bipolar disorder, depression, polysubstance, antisocial personality disorder, malingering, manipulative and drug-seeking behavior. At this moment the patient does not meet criteria for involuntary or voluntary psychiatric admission. Patient might benefit of inpatient comprehensive detox rehabilitation program. Brief supportive psychotherapy provided. Clonidine 0.2 mg p.o. stat and Benadryl 25 mg p.o. stat, as well as ibuprofen 600 mg p.o. stat can help for symptoms of opiates withdrawal. I suggest avoiding narcotics in this patient as much as possible. Assessment & Plan Estimated LOS: days Indio Kirkpatrick MD October 12, 2017 13:46
--- NOTE | 2017-10-12 14:47 | EKG ---
Date Performed: 10/11/2017 Time Performed: 23:53:41 PTAGE: 56 years EKG: Sinus rhythm Left ventricular hypertrophy ABNORMAL ECG PREVIOUS TRACING : 06/23/2017 02.12 DOCTOR: Aaron Tanner Interpretating Date/Time 10/12/2017 14:44:51
== END 2017-10-12 11:12 | disposition home or self-care (01) ==
LOC: NEPE 23:46
DX: R07.89 Other chest pain (principal); F17.200 Nicotine dependence, unspecified, uncomplicated; I10 Essential (primary) hypertension; Z79.899 Other long term (current) drug therapy
CPT/HCPCS: 71045; 80053; 80307; 82550; 84484; 85025; 85610; 85730; 93005; 99285